=== PATIENT | male | born 1955 | race Caucasian/White ===

== ENCOUNTER 2017-04-02 00:56 | Day surgery (SDC) | payer OTHER ==
[~2017-04-02] VITALS: Ht 180.3 cm; Wt 117.0 kg
[~2017-04-02 00:56] MED LIST: ATOR20TA PO; BENZ100C8 PO; CIPR-231 PO; FLUT9.9S NS; GLIM1TAB PO; HYDR-3091 PO; LISI40TA PO; METF-496 PO; METO25TA99 PO; MUPI1OIN6 TP; RIVA20TA PO; SILD50TA PO; SITA100T12 PO; TEST90SO TD
[2017-04-02 09:25] VITALS: BP 134/81; PULSE 72; RESP 15; O2SAT 97
[2017-04-02] MEDS ORDERED: Methohexital 10 mg/mL 50 mL Inj ONE (09:37)
[2017-04-02] MEDS ORDERED: Atropine 1 mg/10 mL (Code) Syringe ONE (09:38)
[2017-04-02] MEDS ORDERED: Flumazenil 0.1 mg/mL 5 mL Inj IV ONE (09:38)
[2017-04-02] MEDS ORDERED: RIVA15TA PO (09:52)
--- NOTE | 2017-04-02 10:56 | NUR ---
Discharge instructions reviewed with patient. He is waiting for his to return.Pt ambulatory.
--- NOTE | 2017-04-03 08:51 | OUT PROC ---
[address] [address] PROCEDURE NOTE PATIENT: ANASTASIIA ERAZO : 1955 MR#: [id number] ADMIT: 04/02/2017 JOB ID: [id number] DATE OF PROCEDURE: 04/02/2017 PROCEDURE: Synchronized direct current cardioversion. INDICATION: Symptomatic atrial fibrillation. CONSENT: The patient was explained the risks, benefits and alternatives of the procedure. Informed signed consent was obtained and placed in the chart. PROCEDURE IN DETAIL: The patient was brought to the procedure room and IV lines were established. Defibrillation pads were placed, placed on the anterior and posterior wall. Heart rate and blood pressure were monitored during the procedure. Versed 1 mg was administered and Brevital 50 mg was administered. After making sure the patient was in deep conscious sedation, 200 joules of DC current was administered. The patient converted to sinus rhythm and remained in sinus rhythm. Postprocedure EKG showed normal sinus rhythm. IMPRESSION: Successful synchronized direct current cardioversion. Postprocedure instructions for anticoagulation for another four weeks given to the patient.
== END 2017-04-02 23:59 | disposition home or self-care (01) ==
LOC: SOUO 00:56
PROVIDERS: ATTEND Internal Medicine Cardiovascular Disease
DX: I48.91 Unspecified atrial fibrillation (principal); I11.9 Hypertensive heart disease without heart failure; I10 Essential (primary) hypertension; Z79.84 Long term (current) use of oral hypoglycemic drugs; E78.2 Mixed hyperlipidemia; Z79.01 Long term (current) use of anticoagulants
CPT/HCPCS: 92960; 93005; 94799; 99152; J2250